=== PATIENT | female | born 1985 | race Caucasian/White ===

== ENCOUNTER 2017-03-16 10:51 | Emergency (ER) | payer OTHER ==
[2017-03-16 11:07] VITALS: RESP 18
--- NOTE | 2017-03-16 11:25 | CPEKG ---
Heart Rate: 54 RR Interval: 1111 P-R Interval: 196 QRSD Interval: 82 QT Interval: 440 QTC Interval: 417 P Saxis: -9 QRS Saxis: 47 T Wave Saxis: 7 EKG Severity - NORMAL ECG - EKG Impression: SINUS RHYTHM Electronically Signed By: Christo Goldberg 16-Mar-2017 16:55:44
--- NOTE | 2017-03-16 11:56 | EDPHY ---
H & P Stated Complaint: 2 days sob/cp Time Seen by Provider: 03/16/17 11:46 HPI/ROS: CHIEF COMPLAINT: Chest pain HISTORY OF PRESENT ILLNESS: The patient presents to the ED for evaluation of an episode of chest pain that occurred yesterday while walking. She developed very sharp substernal discomfort lasting 2-5 minutes. The patient reports her symptoms resolved fairly quickly. Since that time she has had a lingering pressure. She has had some intermittent unexplained symptoms of discomfort in her left arm over the past several weeks. Additionally patient reports a similar episode of nonexertional chest pain 2-3 months ago lasting similar duration. The patient denies asymmetric calf pain or swelling. The patient's pain is slightly pleuritic. The patient denies significant past medical history or risk factors for coronary artery disease. The patient does not smoke. The patient does report a family history of coronary artery disease. REVIEW OF SYSTEMS: A comprehensive 10 point review of systems is otherwise negative aside from elements mentioned in the history of present illness. Source: Patient Exam Limitations: No limitations - Personal History LMP (Females 10-55): IUD In Place Current Tetanus/Diphtheria Vaccine: Unsure - Medical/Surgical History Hx Asthma: No Hx Chronic Respiratory Disease: No Hx Diabetes: No Hx Cardiac Disease: No Hx Renal Disease: No Hx Cirrhosis: No Hx Alcoholism: No Hx HIV/AIDS: No Hx Splenectomy or Spleen Trauma: No Other PMH: denies - Social History Smoking Status: Never smoked - Physical Exam Exam: General Appearance: Alert, no distress Head: Atraumatic Eyes: Pupils equal, round, reactive ENT, Mouth: No hemotympanum, no oral trauma Neck: Nontender, trachea midline Respiratory: No chest wall tender, subcutaneous air, lungs clear bilaterally Cardiovascular: Regular rate and rhythm Abdomen: Abdomen is soft and nontender, pelvis stable Skin: No lacerations, No abrasion Back: No midline T/L/S pain Extremities: Nontender, full range of motion Neurological: A&Ox3, normal motor function, normal sensory exam Constitutional: Initial Vital Signs Temperature (C) 36.9 C 03/16/17 11:04 Heart Rate 59 L 03/16/17 11:04 Respiratory Rate 18 03/16/17 11:04 Blood Pressure 112/92 H 03/16/17 11:04 O2 Sat (%) 99 03/16/17 11:04 O2 Delivery Mode Room Air Allergies/Adverse Reactions: No Known Allergies Allergy (Verified 03/16/17 11:03) Home Medications: Medication Instructions Recorded [place] Iud 03/16/17 Medical Decision Making - Diagnostics EKG Interpretation: EKG: Complete interpretation has been separately recorded in the [email or web address] archive. Summary impression: Sinus rhythm Imaging Results: Imaging Impressions Chest X-Ray 03/16/17 11:54 Impression: Normal chest. ED Course/Re-evaluation: The patient presents to the ED after an episode of chest pain which occurred yesterday. She had a similar episode 2-3 months ago. The patient has no risk factors for cardiac disease. The patient reports she exercises frequently without chest pain or shortness of breath. The patient's EKG demonstrates no evidence of ischemia. The patient's D-dimer is negative which I feel adequately excludes pulmonary embolism. The patient's chest x-ray demonstrates no evidence of acute disease. At this point time my suspicion for acute coronary syndrome is low. I do feel the patient can be discharged home with instructions to return to the ED for protracted chest pain, exertional chest pain, worsening symptoms or other concerns. For completeness, the patient is given the contact number of our on- call loan documentation specialist to schedule a follow-up visit for any ongoing intermittent symptoms. Differential Diagnosis: Differential diagnosis considered includes acute coronary syndrome, esophageal spasm, pericarditis, pneumonia, pneumothorax, pulmonary embolism - Data Points Laboratory Results: Laboratory Results 03/16/17 11:33 03/16/17 11:48 03/16/17 03/16/17 03/16/17 11:48 11:48 11:33 WBC 6.09 10^3/uL 10^3/uL (3.80-9.50) RBC 4.76 10^6/uL 10^6/uL (4.18-5.33) Hgb 14.7 g/dL g/dL (12.6-16.3) Hct 42.8 % % (38.0-47.0) MCV 89.9 fL fL (81.5-99.8) MCH 30.9 pg pg (27.9-34.1) MCHC 34.3 g/dL g/dL (32.4-36.7) RDW 12.0 % % (11.5-15.2) Plt Count 236 10^3/uL 10^3/uL (150-400) MPV 10.1 fL fL (8.7-11.7) Neut % (Auto) 52.9 % % (39.3-74.2) Lymph % (Auto) 37.8 % % (15.0-45.0) [place] % (Auto) 6.4 % % (4.5-13.0) Eos % (Auto) 2.1 % % (0.6-7.6) Baso % (Auto) 0.5 % % (0.3-1.7) Nucleat RBC Rel Count 0.0 % % (0.0-0.2) Absolute Neuts (auto) 3.22 10^3/uL 10^3/uL (1.70-6.50) Absolute Lymphs (auto) 2.30 10^3/uL 10^3/uL (1.00-3.00) Absolute Monos (auto) 0.39 10^3/uL 10^3/uL (0.30-0.80) Absolute Eos (auto) 0.13 10^3/uL 10^3/uL (0.03-0.40) Absolute Basos (auto) 0.03 10^3/uL 10^3/uL (0.02-0.10) Absolute Nucleated RBC 0.00 10^3/uL 10^3/uL (0-0.01) Immature Gran % 0.3 % % (0.0-1.1) Immature Gran # 0.02 10^3/uL 10^3/uL (0.00-0.10) D-Dimer 0.33 ug/mLFEU ug/mLFEU (0.00-0.50) Sodium 141 mEq/L mEq/L (134-144) Potassium 4.1 mEq/L mEq/L (3.5-5.2) Chloride 103 mEq/L mEq/L (97-110) Carbon Dioxide 26 mEq/l mEq/l (22-31) Anion Gap 12 mEq/L mEq/L (8-16) BUN 12 mg/dL mg/dL (7-23) Creatinine 0.7 mg/dL mg/dL (0.6-1.0) Estimated GFR > 60 Glucose 81 mg/dL mg/dL (70-100) Calcium 9.8 mg/dL mg/dL (8.5-10.4) Troponin I < 0.012 ng/mL ng/mL (0-0.034) Departure - Departure Disposition: Home, Routine, Self-Care Clinical Impression: Chest pain Condition: Good Instructions: Chest Pain (ED) Additional Instructions: 1. Based upon the testing done in the Emergency Department today we see no evidence of a heart attack. 2. We are unable to fully exclude coronary artery disease based upon the testing available in the Emergency Department. 3. For this reason, we would like you to be seen by cardiology for consideration of additional testing within the next 3 days. 4. Please contact the loan documentation specialist you have been referred to schedule this appointment as soon as possible. Their offices are typically open from 8:30am- 5pm M-F. 5. Please return to the Emergency Department immediately for any recurrent chest pain, difficulty breathing or other concerns. Referrals: Boy Sheets MD [Medical Doctor] - As per Instructions
[2017-03-16 12:00] LABS: % IMMATURE GRANULYOCYTES 0.3 % (0.0-1.1); ABSOLUTE IMMATURE GRANULOCYTES 0.02 10^3/uL (0.00-0.10); ADD DIFF? NO; ADD MORPH? NO; ADD SCAN? NO; ATYPICAL LYMPHOCYTE FLAG 20 (0-99); FRAGMENT RBC FLAG 0 (0-99); HEMATOCRIT 42.8 % (38.0-47.0); HEMOGLOBIN 14.7 g/dL (12.6-16.3); LEFT SHIFT FLG 0 (0-99); LIPEMIA HEMOLYSIS FLAG 90 (0-99); MEAN CELL HEMOGLOBIN 30.9 pg (27.9-34.1); MEAN CELL HEMOGLOBIN CONCENTR. 34.3 g/dL (32.4-36.7); MEAN CELL VOLUME 89.9 fL (81.5-99.8); MEAN PLATELET VOLUME 10.1 fL (8.7-11.7); PLATELET CLUMPS FLAG 0 (0-99); PLATELET COUNT 236 10^3/uL (150-400); RED BLOOD CELL COUNT 4.76 10^6/uL (4.18-5.33)
[2017-03-16 12:07] LABS: ANION GAP 12 mEq/L (8-16); CALCIUM 9.8 mg/dL (8.5-10.4); CARBON DIOXIDE 26 mEq/l (22-31); CHLORIDE 103 mEq/L (97-110); CREATININE 0.7 mg/dL (0.6-1.0); GLOMERULAR FILTRATION RATE > 60; GLUCOSE 81 mg/dL (70-100); POTASSIUM 4.1 mEq/L (3.5-5.2); SODIUM 141 mEq/L (134-144)
[2017-03-16 12:23] LABS: TROPONIN I < 0.012 ng/mL (0-0.034)
[2017-03-16 13:15] VITALS: TEMP 98.1
[2017-03-16 13:16] VITALS: BP 108/78; PULSE 52; O2SAT 97
== END 2017-03-16 13:14 | disposition home or self-care (01) ==
DX: R07.9 Chest pain, unspecified (principal)